=== PATIENT | male | born 1995 | race Caucasian/White ===

== ENCOUNTER 2019-06-12 08:06 | Emergency (ER) | payer OTHER ==
[~2019-06-12] VITALS: Ht 190.5 cm; Wt 97.7 kg
[2019-06-12 10:04] VITALS: BP 156/93
== END 2019-06-12 10:15 | disposition home or self-care (01) ==
LOC: EEVIPCON 08:06 → EMS 08:10
DX: S22.32XA Fracture of one rib, left side, initial encounter for closed fracture (principal); W17.89XA Other fall from one level to another, initial encounter; Y93.29 Activity, other involving ice and snow; Y92.89 Other specified places as the place of occurrence of the external cause; Y99.8 Other external cause status
CPT/HCPCS: 71101; 99283; G0238

== ENCOUNTER 2019-12-07 07:03 | Emergency (ER) | payer OTHER ==
[~2019-12-07] VITALS: Ht 190.5 cm; Wt 100.0 kg
[2019-12-07 07:05] VITALS: BP 153/74
== END 2019-12-07 08:00 | disposition home or self-care (01) ==
LOC: EMS 07:04
DX: S63.92XA Sprain of unspecified part of left wrist and hand, initial encounter (principal); V00.131A Fall from skateboard, initial encounter; Y93.51 Activity, roller skating (inline) and skateboarding; Y92.89 Other specified places as the place of occurrence of the external cause; Y99.8 Other external cause status